=== PATIENT | male | born 1965 | race Caucasian/White ===

== ENCOUNTER 2020-07-02 08:14 | Outpatient (CLI) | payer OTHER ==
--- NOTE | 2020-07-02 08:48 | ULT ---
US Renal Rt Unilateral: 07/02/2020 12:00 AM CLINICAL HISTORY: Kidney stones. STUDY: Renal ultrasound COMPARISON: None. FINDINGS: Right kidney: Echogenicity: Normal. Masses/cysts: None. Hydronephrosis: None. Calcifications: None. Length: 12.0 cm Left kidney: Absent Limited visualization of the urinary bladder is unremarkable. The right ureteral jet was visualized. IMPRESSION: Unremarkable renal ultrasound
== END 2020-07-02 08:15 | disposition home or self-care (01) ==
LOC: SCSULT 08:14
PROVIDERS: ATTEND Urology
DX: N20.0 Calculus of kidney (principal)
CPT/HCPCS: 76775